=== PATIENT | female | born 1990 | race Hispanic/Latino ===

== ENCOUNTER 2020-06-09 10:29 | Emergency (ER) | payer OTHER, SELFPAY ==
[2020-06-09 11:40] LABS: Absolute Lymphocytes (CBC) 2.3 K/uL (0.7-4.9); Basophils % 1.1 % (0-1.3); Hematocrit 38.2 % (36.0-45.0); Lymphocytes % 37.4 % (15.3-44.8); MPV 8.9 fL (7.6-11.3); RBC Red Blood Cell Count 4.27 M/uL (3.86-4.86)
[2020-06-09 12:02] LABS: BUN Blood Urea Nitrogen 11 mg/dL (7-18); Bicarbonate 27 mmol/L (21-32); Glucose Level 93 mg/dL (74-106); NT PRO-BNP 13 pg/mL (<125); Sodium Level 138 mmol/L (136-145); Troponin (Emerg Dept Use Only) < 0.02 ng/mL (0.0-0.045)
--- NOTE | 2020-06-09 12:06 | EDPHYS ---
Physician Documentation [facility] Name: Emerald Marx Age: 30 yrs Sex: Female : 1990 Arrival Date: 06/09/2020 Time: 10:30 Bed 20 Private MD: ED Physician Kan Keller HPI: 06/09 11:55 This 30 yrs old Female presents to ER via Ambulatory with complaints of Chest jr8 Pain. 11:55 The patient or guardian reports chest pain that is located primarily in the anterior jr8 chest wall, bilaterally. The pain radiates to the left shoulder, back. Associated signs and symptoms: Pertinent positives: shortness of breath. The chest pain is described as sharp. Duration: The patient or guardian reports multiple episodes. Modifying factors: The symptoms are alleviated by nothing. the symptoms are aggravated by nothing. Severity of pain: At its worst the pain was moderate in the emergency department the pain has improved mildly. The patient has not experienced similar symptoms in the past. The patient has not recently seen a physician. 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 - Social history:: Smoking status: Patient reports the use of cigarette tobacco products, denies chronic smoking, but will smoke occasionally. ROS: 11:55 Eyes: Negative for injury, pain, redness, and discharge, ENT: Negative for injury, jr8 pain, and discharge, Neck: Negative for injury, pain, and swelling, Abdomen/GI: Negative for abdominal pain, nausea, vomiting, diarrhea, and constipation, Back: Negative for injury and pain, MS/Extremity: Negative for injury and deformity, Skin: Negative for injury, rash, and discoloration, Neuro: Negative for headache, weakness, numbness, tingling, and seizure. 11:55 Cardiovascular: Positive for chest pain, Negative for edema, orthopnea, palpitations, paroxysmal nocturnal dyspnea. 11:55 Respiratory: Positive for shortness of breath, Negative for cough, dyspnea on exertion, orthopnea. Exam: 11:55 Eyes: Pupils equal round and reactive to light, extra-ocular motions intact. Lids and jr8 lashes normal. Conjunctiva and sclera are non-icteric and not injected. Cornea within normal limits. Periorbital areas with no swelling, redness, or edema. ENT: Nares patent. No nasal discharge, no septal abnormalities noted. Tympanic membranes are normal and external auditory canals are clear. Oropharynx with no redness, swelling, or masses, exudates, or evidence of obstruction, uvula midline. Mucous membranes moist. Neck: Trachea midline, no thyromegaly or masses palpated, and no cervical lymphadenopathy. Supple, full range of motion without nuchal rigidity, or vertebral point tenderness. No Meningismus. Chest/axilla: Normal chest wall appearance and motion. Nontender with no deformity. No lesions are appreciated. Cardiovascular: Regular rate and rhythm with a normal S1 and S2. No gallops, murmurs, or rubs. Normal PMI, no JVD. No pulse deficits. Respiratory: Lungs have equal breath sounds bilaterally, clear to auscultation and percussion. No rales, rhonchi or wheezes noted. No increased work of breathing, no retractions or nasal flaring. Abdomen/GI: Soft, non-tender, with normal bowel sounds. No distension or tympany. No guarding or rebound. No evidence of tenderness throughout. Back: No spinal tenderness. No costovertebral tenderness. Full range of motion. Skin: Warm, dry with normal turgor. Normal color with no rashes, no lesions, and no evidence of cellulitis. MS/ Extremity: Pulses equal, no cyanosis. Neurovascular intact. Full, normal range of motion. Neuro: Awake and alert, GCS 15, oriented to person, place, time, and situation. Cranial nerves II-XII grossly intact. Motor strength 5/5 in all extremities. Sensory grossly intact. Cerebellar exam normal. Normal gait. 11:55 ECG was reviewed by the Attending Physician. Vital Signs: 10:31 BP 140 / 95; Pulse 81; Resp 17 S; Temp 98.1(TE); Pulse Ox 100% on R/A; Weight 75.75 kg ca1 (R); Height 5 ft. 1 in. (154.94 cm) (R); Pain 4/10; 11:35 BP 116 / 88; Pulse 63; Resp 14 S; Pulse Ox 100% on R/A; jd3 10:31 Body Mass Index 31.55 (75.75 kg, 154.94 cm) ca1 MDM: 10:32 Patient medically screened. jr8 12:05 Data reviewed: vital signs, nurses notes, lab test result(s), EKG. Data interpreted: jr8 Pulse oximetry: on room air is 100 %. Interpretation: normal. Counseling: I had a detailed discussion with the patient and/or guardian regarding: the historical points, exam findings, and any diagnostic results supporting the discharge/admit diagnosis, lab results, the need for outpatient follow up, a family practitioner, to return to the emergency department if symptoms worsen or persist or if there are any questions or concerns that arise at home. 06/09 11:11 Order name: CBC with Diff [facility] 06/09 11:11 Order name: Basic Metabolic Panel [facility] 06/09 11:11 Order name: BNP [facility] 06/09 11:11 Order name: Troponin (emerg Dept Use Only) [facility] 06/09 11:45 Order name: CBC with Automated Diff; Complete Time: 11:54 EDMS 06/09 12:03 Order name: Basic Metabolic Panel; Complete Time: 12:04 EDMI 06/09 11:11 Order name: IV; Complete Time: 11:31 [facility] 06/09 11:11 Order name: EKG - Nurse/Tech; Complete Time: 11:12 [facility] 06/09 11:12 Order name: EKG; Complete Time: 11:12 [facility] 06/09 12:03 Order name: Troponin (Emerg Dept Use Only); Complete Time: 12:04 EDMI 06/09 12:03 Order name: NT PRO-BNP; Complete Time: 12:04 EDMS EC:55 Rate is 73 beats/min. Rhythm is regular, Normal Sinus Rhythm. QRS [place] is Normal. PA jr8 interval is normal at 148 msec. QRS interval is normal at 68 msec. QT interval is normal at 374 msec. No Q waves. T waves are Normal. No ST changes noted. Clinical impression: Normal ECG. Interpreted by me. Reviewed by me. Administered Medications: No medications were administered Disposition: 16:56 Co-signature as Attending Physician, Kan Keller MD I agree with the assessment and 4 plan of care. Disposition: 06/09/20 12:05 Discharged to Home. Impression: Chest pain, unspecified. - Condition is Stable. - Discharge Instructions: Nonspecific Chest Pain. - Medication Reconciliation Form, Thank You Letter, Antibiotic Education, Prescription Opioid Use form. - Follow up: Private Physician; When: 5 - 6 days; Reason: Recheck today's complaints, Continuance of care, Re-evaluation by your physician. - Problem is new. - Symptoms have improved. Signatures: Dispatcher [employer] EDMS Ryan Sanches PA PA jr8 Jabari Dalton RN RN jd3 Kna Keller MD MD tw4 Abimbola Hassan RN RN ca1 Corrections: (The following items were deleted from the chart) 12:23 12:05 06/09/2020 12:05 Discharged to Home. Impression: Chest pain, unspecified. jd3 Condition is Stable. Forms are Medication Reconciliation Form, Thank You Letter, Antibiotic Education, Prescription Opioid Use. Follow up: Private Physician; When: 5 - 6 days; Reason: Recheck today's complaints, Continuance of care, Re-evaluation by your physician. Problem is new. Symptoms have improved. jr8
--- NOTE | 2020-06-09 12:06 | ER ---
Nurse's Notes [facility] Name: Emerald Marx Age: 30 yrs Sex: Female : 1990 Arrival Date: 06/09/2020 Time: 10:30 Bed 20 Private MD: Diagnosis: Chest pain, unspecified Presentation: 06/09 10:31 Chief complaint: Patient states: Chest pain since yesterday. Started on the left ca1 shoulder blade then chest pains with deep breathing radiates to the back. reports SOB with CP. Pain is constant. Denies cough. Coronavirus screen: Client denies travel out of the [place] in the last 14 days. cough unrelated to allergies, Client presents with at least one sign or symptom that may indicate coronavirus-19. Standard/surgical mask placed on the client. Provider contacted for isolation considerations. Client reports previous positive COVID test result. Date of collection: November 2019. Ebola Screen: Patient negative for fever greater than or equal to 101.5 degrees Fahrenheit, and additional compatible Ebola Virus Disease symptoms Patient denies exposure to infectious person. Patient denies travel to an Ebola-affected area in the 21 days before illness onset. No symptoms or risks identified at this time. Initial Sepsis Screen: Does the patient meet any 2 criteria? No. Patient's initial sepsis screen is negative. Does the patient have a suspected source of infection? No. Patient's initial sepsis screen is negative. Risk Assessment: Do you want to hurt yourself or someone else? Patient reports no desire to harm self or others. Onset of symptoms was June 08, 2020. 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 - Social history:: Smoking status: Patient reports the use of cigarette tobacco products, denies chronic smoking, but will smoke occasionally. Screenin:02 Abuse screen: Denies threats or abuse. Nutritional screening: No deficits noted. jd3 Tuberculosis screening: No symptoms or risk factors identified. Fall Risk Ambulatory Aid- None/Bed Rest/Nurse Assist (0 pts). Gait- Normal/Bed Rest/Wheelchair (0 pts) Mental Status- Oriented to own ability (0 pts). Total Tran Fall Scale indicates No Risk (0-24 pts). Assessment: 10:59 General: Appears in no apparent distress. comfortable, Behavior is calm, cooperative, jd3 appropriate for age. Pain: Complains of pain in chest Pain radiates to back of neck and back Quality of pain is described as aching, pressure, Pain began suddenly. Neuro: Level of Consciousness is awake, alert, obeys commands, Oriented to person, place, time, situation. Cardiovascular: Reports chest pain, Heart tones S1 S2 present Capillary refill < 3 seconds Patient's skin is warm and dry. Rhythm is regular. Respiratory: Airway is patent Respiratory effort is even, unlabored, Respiratory pattern is regular, symmetrical, Breath sounds are clear bilaterally. Denies cough. GI: No signs and/or symptoms were reported involving the gastrointestinal system. Patient currently denies diarrhea, nausea, vomiting. : No signs and/or symptoms were reported regarding the genitourinary system. EENT: No signs and/or symptoms were reported regarding the EENT system. Derm: Skin is intact, Skin is dry, Skin is normal, Skin temperature is warm. Musculoskeletal: Circulation, motion, and sensation intact. Range of motion: intact in all extremities. 11:34 Reassessment: Patient appears in no apparent distress at this time. No changes from jd3 previously documented assessment. Patient and/or family updated on plan of care and expected duration. Pain level reassessed. Patient is alert, oriented x 3, equal unlabored respirations, skin warm/dry/pink. 12:22 Reassessment: Patient appears in no apparent distress at this time. Patient and/or jd3 family updated on plan of care and expected duration. Pain level reassessed. Patient is alert, oriented x 3, equal unlabored respirations, skin warm/dry/pink. Patient states feeling better. Vital Signs: 10:31 BP 140 / 95; Pulse 81; Resp 17 S; Temp 98.1(TE); Pulse Ox 100% on R/A; Weight 75.75 kg ca1 (R); Height 5 ft. 1 in. (154.94 cm) (R); Pain 4/10; 11:35 BP 116 / 88; Pulse 63; Resp 14 S; Pulse Ox 100% on R/A; jd3 10:31 Body Mass Index 31.55 (75.75 kg, 154.94 cm) ca1 ED Course: 10:30 Patient arrived in ED. as 10:31 Ryan Sanches PA is PHCP. jr8 10:31 Kan Keller MD is Attending Physician. jr8 10:37 EKG done, by ED staff, reviewed by Ryan CAMEJO. em1 10:40 Triage completed. ca1 10:41 Arm band placed on right wrist. ca1 10:48 Jabari Dalton, LEELA is Primary Nurse. jd3 11:03 Patient has correct armband on for positive identification. Placed in gown. Bed in low jd3 position. Call light in reach. Side rails up X 1. youth nutritional monitor on. Pulse ox on. NIBP on. 11:03 Patient maintains SpO2 saturation greater than 95% on room air. jd3 11:30 Inserted saline lock: 20 gauge in right wrist, using aseptic technique. Blood sv collected. Flushed right with 5 ml normal saline. 11:31 Missed attempt(s): 22 gauge in left antecubital area. Bleeding controlled, band aid jd3 applied, catheter tip intact. 12:03 Troponin (emerg Dept Use Only) Sent. sv 12:03 BNP Sent. sv 12:03 Basic Metabolic Panel Sent. sv 12:03 CBC with Diff Sent. sv 12:22 No provider procedures requiring assistance completed. IV discontinued, intact, jd3 bleeding controlled, No redness/swelling at site. Pressure dressing applied. Administered Medications: No medications were administered Outcome: 12:05 Discharge ordered by . jr8 12:22 Discharged to home ambulatory, with family. jd3 12:22 Condition: stable 12:22 Discharge instructions given to patient, Instructed on discharge instructions, follow up and referral plans. Demonstrated understanding of instructions, follow-up care. 12:23 Patient left the ED. jd3 Signatures: Farnaz Angel, RN RN Alla Cronin Eric em1 Ryan Sanches PA PA jr8 Jabari Dalton RN RN jd3 Abimbola Hassan RN RN ca1
[2020-06-09 12:28] VITALS: TEMP 98.1; O2SAT 100
[2020-06-09 12:30] VITALS: BP 116/88
== END 2020-06-09 12:23 | disposition home or self-care (01) ==
LOC: ER 10:29
DX: R07.89 Other chest pain (principal); F17.210 Nicotine dependence, cigarettes, uncomplicated
CPT/HCPCS: 36415; 80048; 83880; 84484; 85025; 93005; 99285

== ENCOUNTER 2021-11-30 13:08 | Emergency (ER) | payer OTHER ==
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
[2021-11-30 15:26] VITALS: BP 146/110; TEMP 98; O2SAT 99
== END 2021-11-30 15:21 | disposition home or self-care (01) ==
LOC: ER 13:08
DX: R07.9 Chest pain, unspecified (principal); R10.10 Upper abdominal pain, unspecified; R51.9 Headache, unspecified; V49.40XA Driver injured in collision with unspecified motor vehicles in traffic accident, initial encounter
CPT/HCPCS: 70450; 71250; 72125; 99282